=== PATIENT | male | born 1975 | race Caucasian/White ===

== ENCOUNTER 2016-11-13 14:37 | Emergency (ER) | payer MEDICARE ==
--- NOTE | ~2016-11-13 | CR141 ---
[facility] A Service of [facility] RADIOLOGY TEXT RESULTS PATIENT: GLENROY BOLAND LOCATION: [facility] : 77 UNIT #: [id number] AGE: [address]: Tawana Vo SEX: M ORDER DR: [id number] [facility] [address] [place], [place] [address] [id number] E MR#: [id number] Acc #: [id number] NAME: GLENROY BOLAND : 1975 SEX: M STUDY DATE/TIME: 11/13/2016 14:05 UNIT: [facility] ROOM: STUDY DESCRIPTION: CR Hand Min 3 Views Lt Attending Physician: Tawana Vo P.A.-C. Ordering Physician: Jose Pearce M.D. MEDICAL IMAGING REPORT This report is preliminary unless electronic signature is present EXAM Left hand, 3 views. COMPARISON None. INDICATIONS 41-year-old male with left hand pain localizing to the second digit where there is also a laceration, which occurred after a jeromy collapsed on his left hand today. FINDINGS There is a comminuted acute fracture through the shaft of the second proximal phalanx. There is volar convex angulation of the fracture of approximately 30 degrees. There is no associated radiopaque foreign body. There does appear to be associated subcutaneous gas and technically this finding represents a compound fracture. No evidence of retained radiopaque foreign body. No dislocation. IMPRESSION Acute comminuted, 30-degree angulated fracture of the shaft of the second proximal phalanx without evidence of intraarticular extension. There does appear to be adjacent subcutaneous gas consistent with a history of laceration in this location. A compound fracture cannot be excluded. No radiopaque foreign body. No dislocation. Dictated by... Omid Logan M.D. THIS IS AN ELECTRONICALLY VERIFIED REPORT Omid Logan M.D. at 11/16/2016 3:[address] [facility]/jt [facility] A Service of [facility] RADIOLOGY TEXT RESULTS PATIENT: GLENROY BOLAND LOCATION: [facility] : 77 UNIT #: [id number] AGE: [address]: Tawana Vo SEX: M ORDER DR: TD: 11/13/2016 15:39 JOB #: [id number] MEDICAL IMAGING REPORT Page 1 of 1 COPY
== END 2016-11-13 15:00 | disposition short-term general hospital (02) ==
LOC: CFTX 14:37
DX: S62.611B Displaced fracture of proximal phalanx of left index finger, initial encounter for open fracture (principal); S61.412A Laceration without foreign body of left hand, initial encounter; F17.200 Nicotine dependence, unspecified, uncomplicated; Z23 Encounter for immunization; W22.8XXA Striking against or struck by other objects, initial encounter; Y92.89 Other specified places as the place of occurrence of the external cause
CPT/HCPCS: 29130; 73130; 90471; 90715; 96372; 99283; J2270; J2550